=== PATIENT | male | born 1990 | race African-American/Black ===

== ENCOUNTER 2022-03-23 13:31 | Emergency (ER) | payer OTHER, SELFPAY ==
--- NOTE | 2022-03-23 13:37 | ED.URI ---
HPI - URI/Sore Throat General Chief Complaint: Upper Respiratory Infection Stated Complaint: ASTHMA Time Seen by Provider: 03/23/22 13:55 Source: patient Mode of arrival: ambulatory Limitations: no limitations History of Present Illness HPI Narrative: Mega Gaitan is a 32 year old male who presents to the clinic for shortness of breath starting 2 days ago but worsening this morning. He feels worsening shortness of breath when he moves around. He took an allergy medication this morning at 7 am and was able to work today. He has a history of asthma, and is out of his inhaler. He does not regularly use an albuterol inhaler. He has seasonal allergies and has had allergy symptoms including runny nose and watery eyes over the last few days. He has mildly productive cough with white/clear, non-purulent sputum. He denies fever, chills, nausea, vomiting, rash, chest pain, lower extremity edema. He does not smoke. Related Data Home Medications Medication Instructions Recorded Confirmed albuterol sulfate 90 mcg/actuation inhalation 03/23/22 aerosol inhaler Allergies Allergy/AdvReac Type Severity Reaction Status Date / Time Latex, Natural Rubber Allergy Sneezing Verified 03/23/22 13:44 Review of Systems Review of Systems: Pertinent positives per HPI. Patient denies any fever, chills, rash, headache, visual changes, dizziness, sore throat, chest pain, palpitations, nausea, vomiting, diarrhea, constipation, abdominal pain, or any urinary issues. PMFSH Comments At the time of my signature, I reviewed and agree with the nursing past medical, surgical, social, and family history. There is no relevant family history pertinent to the patient complaint. Exam Narrative: General: Obese, well nourished, in no apparent distress Head: Normocephalic, atraumatic Eyes: Pupils equally round and reactive to light bilaterally, EOM intact, sclera and conjunctive mildly injected, clear discharge, lids normal Ears: TMs intact and clear, ear canals clear, no drainage, grossly hearing normal. Nose: Nares patent, no discharge, no inflammation, no sinus tenderness. Mouth: Oropharynx without lesions or masses, good dentition, MMM, mildly erythematous oropharynx with cobblestoning of the mucosa without tonsillar edema or exudate. Neck: Supple, trachea midline, no enlargement of anterior or posterior cervical nodes, no thyroid masses or goiter palpable. Cardio: Regular rate and rhythm, s1 and s2 normal, no murmur appreciated. Resp: High-pitched wheezing present in all lung black with diminished airflow, no rhonchi, rales, or rubs Course Course Emergency Course: Portions of this record may have been created with voice recognition software. Level of Care: Express Care Visit Vital Signs Vital signs: Vital Signs Temperature 37.4 C 03/23/22 13:52 Pulse Rate 76 03/23/22 13:52 Respiratory Rate 20 03/23/22 13:52 Blood Pressure 142/98 H 03/23/22 13:52 Pulse Oximetry 98 03/23/22 13:52 Oxygen Delivery Room Air 03/23/22 13:52 Temperature 37.4 C 03/23/22 13:52 Pulse Rate 82 03/23/22 15:21 Respiratory Rate 20 03/23/22 15:21 Blood Pressure 142/98 H 03/23/22 13:52 Pulse Oximetry 99 03/23/22 15:21 Oxygen Delivery Room Air 03/23/22 13:52 Vital signs reviewed MDM - URI/Sore Throat MDM Narrative Medical decision making narrative: Patient presented in apparent asthma exacerbation, with shortness of breath and wheezing on auscultation. He was given a DuoNeb handheld treatment in the clinic with significant improvement -no wheezing present on exam following treatment as well as patient reporting he feels much better . We will send him home with prescriptions for a short course of prednisone as well as albuterol inhaler to use as needed. He was also instructed to use Flonase, Zyrtec, Mucinex, and other allergy medications [id number] for his allergy symptoms. The patient was instructed to follow-up with hi
[2022-03-23 13:52] VITALS: BP 142/98; PULSE 76; RESP 20; TEMP 37.4; O2SAT 98
[2022-03-23] MEDS: IPRATROPIUM BR 0.02% INH SOLN 0.5 MG/2.5 ML VIAL INHALATION (14:08)
[2022-03-23] MEDS: ALBUTEROL SULFATE NEB 2.5 MG/3 ML INH INHALATION (14:09)
[2022-03-23 14:10] VITALS: PULSE 76; RESP 20; O2SAT 98
[2022-03-23 15:21] VITALS: PULSE 82; RESP 20; O2SAT 99
== END 2022-03-23 14:34 | disposition home or self-care (01) ==
PROVIDERS: Emergency Provider Nurse Practitioner Family
DX: J45.909 Unspecified asthma, uncomplicated (principal); Z86.16 Personal history of COVID-19
CPT/HCPCS: 94640; 99213; G0463